=== PATIENT | female | born 1960 | race Caucasian/White ===

== ENCOUNTER 2016-07-24 11:46 | Emergency (ER) | payer OTHER ==
[~2016-07-24] VITALS: Ht 170.2 cm; Wt 72.6 kg
[2016-07-24 14:16] VITALS: BP 135/88
== END 2016-07-24 15:32 | disposition home or self-care (01) ==
LOC: ER 11:46
DX: R20.0 Anesthesia of skin (principal); M79.605 Pain in left leg; F17.210 Nicotine dependence, cigarettes, uncomplicated; E78.5 Hyperlipidemia, unspecified; I10 Essential (primary) hypertension; E07.9 Disorder of thyroid, unspecified
CPT/HCPCS: 93005; 93971